=== PATIENT | female | born 1965 | race American Indian/Alaskan Native ===

== ENCOUNTER 2018-05-31 09:33 | Emergency (ER) | payer SELFPAY ==
[2018-05-31 09:41] VITALS: BP 148/79
[2018-05-31] MEDS ORDERED: PROVENTIL IH ONE (09:59)
--- NOTE | 2018-05-31 10:00 | Emergency Department Report ---
Minor Respiratory - HPI Chief Complaint: Upper Respiratory Infection Stated Complaint: SOB/COUGH/FEVER Time Seen by Provider: 05/31/18 09:55 Duration: 5 Days Pain Location: Facial, Throat, Nose, Ear, Chest Severity: mild Minor Respiratory: Yes Sore Throat, Yes Able to Tolerate Fluids, Yes Cough, No Rhinorrhea, No Ear Pain, No Sick Contacts, No Hemoptysis, No Chest Pain, No Shortness of Breath, No Fever Other History: Miss Gaviria is a 53-year-old -[place] female who comes to the ER today complaining of a cough for several weeks. She did say that she saw 7 days ago at our ER in [place] and was told she had bronchitis. She was sent home on Bactrim and steroids but she states that it's really not gotten any better. She has no sputum and she is afebrile. She is ambulatory and pulse ox is 98% on room air. Patient is diabetic and has hypertension. ED Review of Systems ROS: Stated complaint: SOB/COUGH/FEVER Other details as noted in HPI Comment: All other systems reviewed and negative Constitutional: see HPI, chills. denies: fever Eyes: as per HPI ENT: as per HPI, throat pain Respiratory: see HPI, cough Cardiovascular: denies: chest pain Endocrine: denies: excessive sweating, intolerance to heat Gastrointestinal: denies: nausea Genitourinary: denies: dysuria Musculoskeletal: denies: back pain Skin: denies: rash Neurological: denies: headache Psychiatric: denies: anxiety Hematological/Lymphatic: denies: easy bleeding ED Past Medical Hx - Past Medical History Hx CVA: Yes (TIA) Hx Diabetes: Yes - Surgical History Hx Appendectomy: Yes Additional Surgical History: TUBAL - Social History Smoking Status: Never Smoker Substance Use Type: None - Medications Home Medications: Home Medications Medication Instructions Recorded Confirmed Last Taken Type Benzonatate [Tessalon Perles] 100 mg PO Q8HR PRN #20 capsule 05/31/18 Unknown Rx Fluticasone [Flonase] 1 spray NS QDAY #1 bottle 05/31/18 Unknown Rx cephALEXin [Keflex] 500 mg PO Q12HR #20 cap 05/31/18 Unknown Rx predniSONE [Deltasone] 20 mg PO DAILY #5 tablet 05/31/18 Unknown Rx Minor Respiratory Exam - Exam General: Vital signs noted. No distress. Alert and acting appropriately. HEENT: Yes Pharyngeal Erythema, Yes Moist Mucous Membranes, No Pharyngeal Exudates, No Rhinorrhea, No Conjuctival Injection, No Frontal Tenderness, No Maxillary Tenderness Ear: Neither TM Bulge, Neither TM Erythema, Neither EAC Pain, Neither EAC Discharge Neck: Yes Supple, No Adenopathy Lungs: Yes Good Air Exchange, Yes Wheezes, No Ronchi, No Stridor, No Cough, No Labored Respirations, No Retractions, No Use of Accessory Muscles, No Other Abnormal Lung Sounds Heart: Yes Regular, No Murmur Abdomen: Yes Normal Bowel Sounds, No Tenderness, No Peritoneal Signs Skin: No Rash, No Edema Neurologic: Alert and oriented, no deficits. Musculoskeletal: Unremarkable. ED Course Vital Signs 05/31/18 09:39 Temperature 97.8 F Pulse Rate 83 Respiratory 18 Rate Blood Pressure 148/79 O2 Sat by Pulse 97 Oximetry ED Medical Decision Making - Lab Data Result diagrams: 05/31/18 10:09 05/31/18 10:09 - Radiology Data Radiology results: report reviewed, image reviewed naP - Medical Decision Making Labs 05/31/18 05/31/18 10:09 10:09 WBC 14.0 H RBC 3.91 Hgb 11.8 Hct 36.0 MCV 92 MCH 30 MCHC 33 RDW 12.1 L Plt Count 435 Sodium 133 L Potassium 3.8 Chloride 93.8 L Carbon Dioxide 25 Anion Gap 18 BUN 20 H Creatinine 0.7 Estimated GFR > 60 BUN/Creatinine Ratio 29 Glucose 221 H Calcium 9.5 - Differential Diagnosis RO PNA Critical care attestation.: If time is entered above; I have spent that time in minutes in the direct care of this critically ill patient, excluding procedure time. ED Disposition Clinical Impression: URTI (acute upper respiratory infection), Bronchitis Disposition: - TO HOME OR SELFCARE Is pt being admited?: No Does the pt Need Aspirin: No Condition: Stable Instructions: Acute Bronchitis (ED) Additional Instructions: HYDRATE WELL WITH WATER MEDS ORDERED TODAY FOLLOW UP WITH PCP MOTRIN OR TYLENOL FOR FEVER Referrals: NEREYDA BOYKIN DO [Primary Care Provider] - 3-5 Days Time of Disposition: 10:54
[2018-05-31 10:22] LABS: Hemoglobin 11.8 gm/dl (10.1-14.3); Mean Corpuscular HGB Conc 33 % (30-34); Mean Corpuscular Volume 92 fl (79-97); Platelet Count 435 K/mm3 (140-440); Red Blood Count 3.91 M/mm3 (3.65-5.03); Red Cell Distribution Width 12.1 % (13.2-15.2)
[2018-05-31 10:40] LABS: BUN/Creatinine Ratio 29; Blood Urea Nitrogen 20 mg/dL (7-17); Calcium 9.5 mg/dL (8.4-10.2); Hemolysis Index 2
--- NOTE | 2018-05-31 10:43 | XRay Report ---
ROUTINE CHEST, TWO VIEWS: HISTORY: Cough for 3 weeks. The trachea, heart, mediastinal contour, lung mcdonald and bony thorax are unremarkable. IMPRESSION: Unremarkable chest x-ray.
[2018-05-31] MEDS ORDERED: XYLOCAINE 1% MPF 5 mL INFILTRATI ONE (10:47)
[2018-05-31] MEDS ORDERED: ROCEPHIN IM ONE (10:47)
[2018-05-31] MEDS ORDERED: SOLU-Medrol IM ONE (10:47)
== END 2018-05-31 12:09 | disposition home or self-care (01) ==
LOC: ED 09:33
DX: J40 Bronchitis, not specified as acute or chronic (principal); J06.9 Acute upper respiratory infection, unspecified; E11.9 Type 2 diabetes mellitus without complications; Z86.73 Personal history of transient ischemic attack (TIA), and cerebral infarction without residual deficits
CPT/HCPCS: 36415; 71046; 80048; 85027; 96372; 99283; J0696; J2930

== ENCOUNTER 2018-06-29 12:43 | Emergency (ER) | payer OTHER ==
[2018-06-29 13:00] VITALS: BP 159/78
[2018-06-29] MEDS ORDERED: ASPIRIN PO ONE (13:00)
[2018-06-29 13:41] LABS: Basophils # (Auto) 0.1 K/mm3 (0.0-0.1); Basophils % (Auto) 0.9 % (0.0-1.8); Eosinophils # (Auto) 0.1 K/mm3 (0.0-0.4); Eosinophils % (Auto) 1.9 % (0.0-4.3); Hemoglobin 11.2 gm/dl (10.1-14.3); Lymphocytes # (Auto) 1.5 K/mm3 (1.2-5.4); Lymphocytes % (Auto) 25.7 % (13.4-35.0); Mean Corpuscular HGB Conc 34 % (30-34); Mean Corpuscular Volume 94 fl (79-97); Monocytes # (Auto) 0.5 K/mm3 (0.0-0.8); Monocytes % (Auto) 8.8 % (0.0-7.3); Platelet Count 354 K/mm3 (140-440); Red Blood Count 3.52 M/mm3 (3.65-5.03); Red Cell Distribution Width 12.9 % (13.2-15.2)
--- NOTE | 2018-06-29 13:51 | XRay Report ---
ROUTINE CHEST, TWO VIEWS: HISTORY: chest pain. The trachea, heart, mediastinal contour, lung mcdonald and bony thorax are unremarkable. IMPRESSION: Unremarkable chest x-ray.
[2018-06-29 14:17] LABS: BUN/Creatinine Ratio 26; Blood Urea Nitrogen 13 mg/dL (7-17); Calcium 9.5 mg/dL (8.4-10.2); Hemolysis Index 7
--- NOTE | 2018-06-29 17:35 | Emergency Department Report ---
ED General Adult HPI - General Chief complaint: Chest Pain Stated complaint: SOB/CHEST TIGHTNESS Time Seen by Provider: 06/29/18 15:41 Source: patient Mode of arrival: Ambulatory Limitations: No Limitations - History of Present Illness Severity scale (0 -10): 6 - Related Data Previous Rx's Medication Instructions Recorded Last Taken Type Benzonatate [Tessalon Perles] 100 mg PO Q8HR PRN #20 capsule 05/31/18 Unknown Rx Fluticasone [Flonase] 1 spray NS QDAY #1 bottle 05/31/18 Unknown Rx cephALEXin [Keflex] 500 mg PO Q12HR #20 cap 05/31/18 Unknown Rx predniSONE [Deltasone] 20 mg PO DAILY #5 tablet 05/31/18 Unknown Rx Allergies Allergy/AdvReac Type Severity Reaction Status Date / Time iodine Allergy Hives Verified 05/31/18 09:35 ED Review of Systems ROS: Stated complaint: SOB/CHEST TIGHTNESS Other details as noted in HPI Constitutional: denies: chills, fever Eyes: denies: eye pain, eye discharge, vision change ENT: denies: ear pain, throat pain Respiratory: denies: cough, shortness of breath, wheezing Cardiovascular: denies: chest pain, palpitations Endocrine: no symptoms reported Gastrointestinal: denies: abdominal pain, nausea, diarrhea Genitourinary: denies: urgency, dysuria, discharge Musculoskeletal: denies: back pain, joint swelling, arthralgia Skin: denies: rash, lesions Neurological: denies: headache, weakness, paresthesias Psychiatric: denies: anxiety, depression Hematological/Lymphatic: denies: easy bleeding, easy bruising ED Past Medical Hx - Past Medical History Hx CVA: Yes (TIA) Hx Diabetes: Yes - Surgical History Hx Appendectomy: Yes Additional Surgical History: TUBAL - Social History Smoking Status: Never Smoker Substance Use Type: None - Medications Home Medications: Home Medications Medication Instructions Recorded Confirmed Last Taken Type Benzonatate [Tessalon Perles] 100 mg PO Q8HR PRN #20 capsule 05/31/18 Unknown Rx Fluticasone [Flonase] 1 spray NS QDAY #1 bottle 05/31/18 Unknown Rx cephALEXin [Keflex] 500 mg PO Q12HR #20 cap 05/31/18 Unknown Rx predniSONE [Deltasone] 20 mg PO DAILY #5 tablet 05/31/18 Unknown Rx ED Physical Exam - General Limitations: No Limitations General appearance: alert, in no apparent distress - Head Head exam: Present: atraumatic, normocephalic - Eye Eye exam: Present: normal appearance, PERRL, EOMI - ENT ENT exam: Present: mucous membranes moist, TM's normal bilaterally, other (airway patent. Voice is normal. Tongue and uvula are midline with no edema. No stridor noted. Speaking in full sentences with no difficulty. No exudate noted) - Neck Neck exam: Present: normal inspection, full ROM. Absent: tenderness, meningismus - Respiratory Respiratory exam: Present: normal lung sounds bilaterally. Absent: respiratory distress, wheezes, rales, chest wall tenderness, accessory muscle use, decreased breath sounds, prolonged expiratory - Cardiovascular Cardiovascular Exam: Present: regular rate, normal rhythm. Absent: systolic murmur, diastolic murmur, rubs, gallop - GI/Abdominal GI/Abdominal exam: Present: soft, normal bowel sounds. Absent: tenderness, gu arding - Extremities Exam Extremities exam: Present: normal inspection - Back Exam Back exam: Present: normal inspection - Neurological Exam Neurological exam: Present: alert, oriented X3 - Psychiatric Psychiatric exam: Present: normal affect, normal mood - Skin Skin exam: Present: warm, dry, intact, normal color. Absent: rash ED Course Vital Signs 06/29/18 12:57 Temperature 97.8 F Pulse Rate 75 Respiratory 16 Rate Blood Pressure 159/78 O2 Sat by Pulse 100 Oximetry ED Medical Decision Making - Lab Data Result diagrams: 06/29/18 13:15 06/29/18 13:15 - EKG Data EKG shows normal: sinus rhythm Rate: normal - EKG Data Interpretation: normal EKG - Radiology Data Radiology results: report reviewed (no acute processes) - Medical Decision Making This 3-year-old female with a few week history of intermittent dysphagia. CT scan was negative for any acute processes, although limited IV contrast. She has iodine allergy status is intact. She has had a contrast allergy in the past. Therefore, CT was done without contrast. However, she is speaking in full sentences with no voice change. She is able to tolerate oral with some soreness occasionally. There is no hemoptysis. There is no stridor or wheezing appreciated. There is no external swelling or lymphadenopathy appreciated. I discussed with her about the need to follow with ENT if she may also benefit from having a scope for this issue.. Ms. Gaviria states she is not having any chest pain currently. She was been in her throat and neck region. Patient denies any palpitations, hemoptysis, fever, syncope Critical care attestation.: If time is entered above; I have spent that time in minutes in the direct care of this critically ill patient, excluding procedure time. ED Disposition Clinical Impression: Dysphagia Disposition: DC- TO HOME OR SELFCARE Is pt being admited?: No Does the pt Need Aspirin: No Condition: Stable Instructions: Barium Swallow (ED), Esophageal Spasm (ED) Referrals: PRIMARY CARE,MD [Primary Care Provider] - 3-5 Days ANDIE MORRIS MD [Staff Physician] - 3-5 Days JAVY EVANS MD [Staff Physician] - 3-5 Days DEBRA ANNE MD [Staff Physician] - 3-5 Days [facility] [Provider Group] - 3-5 Days
--- NOTE | 2018-06-29 18:49 | Cat Scan Report ---
PROCEDURE: CT NECK WO CON TECHNIQUE: Computerized tomography of the soft tissue neck was performed without contrast material. This study is performed without intravascular contrast material and its sensitivity for pathology, in cluding neoplasms, inflammation, abscess, free fluid, thrombosis, and arterial dissection, is reduced compared with a contrast enhanced study. HISTORY: dysphagia (normal voice) COMPARISONS: None . FINDINGS: Skull base: Visualized portions are normal . Paranasal sinuses: Visualized portions are normal . Nasopharynx: Normal . Oral cavity: Normal . Epiglottis/vallecula: Normal . Larynx/pyriform sinuses: Normal . Thyroid gland: The right thyroid lobe measures 6.1 cm craniocaudal x 3.8 cm AP x 2.7 cm transverse. Left thyroid lobe measures 5.6 cm craniocaudal x 4.2 cm AP x 2.2 cm transverse . Lymph nodes: None enlarged . Salivary glands: Normal . Upper thorax: Normal . There are degenerative disc changes with anterior osteophytes predominantly from C3-4 through C6-7. IMPRESSION: No acute abnormality is seen. Study is limited by lack of IV contrast. If there are persistent sympto ms or concern for subtle mass, further evaluation with post-IV contrast images is recommended. Thyroid gland is mildly prominent . This document is electronically signed by Ariadna Griffiths MD., June 29 2018 06:47:35 PM ET
== END 2018-06-29 20:30 | disposition home or self-care (01) ==
LOC: ED 12:43
DX: R13.10 Dysphagia, unspecified (principal); E11.9 Type 2 diabetes mellitus without complications; Z86.73 Personal history of transient ischemic attack (TIA), and cerebral infarction without residual deficits
CPT/HCPCS: 36415; 70490; 71046; 80048; 84484; 85025; 93005; 93010